=== PATIENT | female | born 1975 | race Caucasian/White ===

== ENCOUNTER 2024-05-05 19:20 | Emergency (ER) | payer OTHER ==
[~2024-05-05] VITALS: Ht 170.2 cm; Wt 59.5 kg
[2024-05-05 19:52] VITALS: TEMP 98.1
[2024-05-05] MEDS: KETOROLAC TROMETHAMINE 60 MG/2 ML VIAL IM ONE (22:53)
[2024-05-05] MEDS ORDERED: IBUP-1492 PO (23:11)
[2024-05-05] MEDS ORDERED: LIDO700A15 TP (23:24)
[2024-05-05] MEDS: ALBUTEROL SULFATE HFA 90 MCG/PUFF 8 GM INHALER IH ONE (23:27)
[2024-05-05] MEDS: LIDOCAINE 5% TRANSDERMAL PATCH TD ONE (23:27)
[2024-05-05 23:34] VITALS: BP 122/72; PULSE 65; RESP 17
== END 2024-05-05 23:36 | disposition home or self-care (01) ==
LOC: EMS 19:20
DX: R07.89 Other chest pain (principal); J45.909 Unspecified asthma, uncomplicated
CPT/HCPCS: 99283; 71045; 94640; 93005; 96372; J1885; J3535